=== PATIENT | male | born 1970 | race Caucasian/White ===

== ENCOUNTER 2018-11-28 11:25 | Inpatient (IN) | payer OTHER ==
[~2018-11-28] VITALS: Ht 172.7 cm; Wt 82.2 kg
[~2018-11-28 11:25] MED LIST: ATEN-60 PO; BECL80AE9 IN; CARI-277 PO; CHOL100040 PO; CITA-30 PO; GABA250S2 PO; HYDR-3682 PO; MORP30TA PO; NOR10T PO; ONDA-143 PO; PREDPOW63 PO; QUET100T38 PO; QUET50TA PO; [UNRECOGNIZED DRUG - OTHER]; nitro SL
[2018-11-28] MEDS ORDERED: IOHEXOL 300 MG/ML 100ML BOTTLE IJ ONE (11:41)
[2018-11-28] MEDS ORDERED: MORPHINE SULFATE 4 MG/ML SYR/VIAL IV ONE (11:45)
[2018-11-28] MEDS ORDERED: ONDANSETRON HCL 4 MG/2 ML VIAL IV ONE (11:45)
[2018-11-28 11:56] LABS: Basophils # (auto) 0.1 uL; Basophils % (auto) 1.3 % (0.0-2.0); Eosinophils # (auto) 0.2 uL; Eosinophils % (auto) 3.4 % (0.0-7.0); Hemoglobin 14.4 g/dL (13.5-17.5); Lymphocytes # (auto) 1.7 uL; Lymphocytes % (auto) 26.3 % (10.0-50.0); Mean Corpuscular Hemoglobin 30.8 pg (28.0-32.0); Mean Corpuscular Hgb Conc. 34.3 g/dL (32.0-36.0); Mean Corpuscular Volume 89.9 fL (80.0-100.0); Monocytes # (auto) 0.3 uL; Monocytes % (auto) 5.4 % (0.0-12.0); Neutrophils # (auto) 4.1 uL; Neutrophils % (auto) 63.6 % (37.0-80.0); Platelet Count (auto) 330 10^3/uL (140-450); Red Blood Cells 4.67 10^6/uL (4.5-5.90); Red Cell Distribution Width 14.1 % (11.8-14.3); White Blood Cell 6.4 10^3/uL (4.4-10.8)
[2018-11-28 12:15] LABS: Albumin 3.2 g/dL (3.4-5.0); Calcium 8.8 mg/dL (8.5-10.1); Potassium 3.8 mmol/L (3.5-5.1)
[2018-11-28 12:17] LABS: INR 0.98 (0.9-1.15); Partial Thromboplastin Time 26.6 sec (23.64-32.05)
[2018-11-28 12:18] LABS: BUN/Creatinine Ratio 15.3; Bilirubin, Total 0.4 mg/dL (0.2-1.0); Total Protein 6.5 g/dL (6.4-8.2)
[2018-11-28] MEDS ORDERED: SODIUM CHLORIDE 0.9% 1,000 ML IV SCH (16:05)
[2018-11-28] MEDS ORDERED: ACETAMINOPHEN 500 MG TAB PO PRN (16:15)
[2018-11-28] MEDS: FAMOTIDINE (10MG/ML) 2ML VL IV SCH (16:39)
[2018-11-28] MEDS: PROMETHAZINE HCL 25 MG/ML 1ML IV PRN ×2 (16:40→20:47)
[2018-11-28] MEDS: MORPHINE SULFATE 4 MG/ML SYR/VIAL IV PRN ×2 (16:40→20:47)
[2018-11-28] MEDS ORDERED: D5W/SOD CHL 0.45%/KCL 40MEQ 1,000 ML IV ONE (16:45)
--- NOTE | 2018-11-28 17:50 | NUR ---
CAME ON FROM ER, ALERT AND ORIENTED X4, NOT IN DISTRESS, CLEAR LS IN BILATERAL LS, RR=18 SAT=97%, DENIED CHEST PAIN OR SOB,HEART R=66, ABDOMEN SOFT WITH ACTIVE BS, LAST BM=11/28/18 REPORTED, KEEP NPO ORDERED, LT INGUINAL HERNIA AND SWOLLEN SCROTUMS NOTE, SKIN INTACT WARM TO TOUCH, RADIAL AND PEDAL PULSES PALPABLE, CAP REFILL <3 SECONDS, VS T=97.8 RR=18 SAT=97% P=66 SZ=425/83, RESTING FAMILY AT BED SIDE, HEAD OF BED ELEVATED, BED ON LOW POSITION, RAILS UP X2, CALL LIGHT ON REACH, PENDING OR FOR HERNIA REPAIR ORDERED, WILL CONTINUE MONITORING.
--- NOTE | 2018-11-28 19:27 | NUR ---
REPORT WAS GIVEN TO THE PESTICIDE USE MEDICAL COORDINATOR RN.
--- NOTE | 2018-11-28 20:00 | NUR ---
PAGED HOSPITALIST REGARDING DIET FOR PATIENT, PATIENT COMPLAINT NOT HAVING ANYTHING TO EAT FOR THE WHOLE DAY. AWAITING CALLBACK. CONTINUE PATIENT CARE.
--- NOTE | 2018-11-28 21:58 | NUR ---
REPAGED HOSPITALIST. AWAITING CALLBACK. PATIENT IS UPSET. EXPLAINED THE NEED FOR NOTHING BY MOUTH BUT INSISTED OF HAVING SOMETHING TO EAT BEFORE MIDNIGHT.
[2018-11-28 22:00] VITALS: BP 134/93
--- NOTE | 2018-11-28 22:10 | NUR ---
SPOKE WITH BARBARA MAGAÑA/ALEISHA REGARDING DIET FOR PATIENT, OKAY TO GIVE SANDWICH TONIGHT THEN RESUME NPO AFTER MIDNIGHT. CONTINUE PATIENT CARE.
[2018-11-29] MEDS: FAMOTIDINE (10MG/ML) 2ML VL IV SCH ×2 (04:03→16:53)
[2018-11-29 04:57] VITALS: BP 135/88
[2018-11-29] MEDS ORDERED: BUPIVACAINE W/ EPINEPH 0.25% INJ 50ML MDV ONE (07:36)
[2018-11-29 08:00] VITALS: BP 154/87
[2018-11-29] MEDS ORDERED: ceFAZolin 1GM/50ML 50 ML IV ONE (08:00)
--- NOTE | 2018-11-29 08:00 | NUR ---
RECEIVED PATIENT ALERT AND ORIENTED X4, NOT IN DISTRESS, CLEAR SOUNDS IN BILATERAL LUNG LOBES, RR=18 SAT=95%, DEEP BREATHING AND COUGHING ENCOURAGED, DEMONSTRATED AND TOLERATED WELL, DENIED SOB AND CHEST PAIN, HEART R=76, ABDOMEN SOFT AND ROUND WITH ACTIVE BS, LAST BM=11/27/18 REPORTED, SKIN INTACT WARM TO TOUCH, RADIAL AND PEDAL PULSES PALPABLE, CAP REFILL <3 SECONDS, ENCOURAGED TO AMBULATE AND VERBALIZED UNDERSTANDING, RESTING ON BED, HEAD OF BED ELEVATED, BED ON LOW POSITION, RAILS UP X2, CALL LIGHT ON REACH, CONSENT FORM ON CHART, CHECK LIST COMPLETED, VS T=97.6 RR=18 SAT=95% P=76 NZ=457/83, DENIED PAIN, WENT ON BED TO PRE OP, WILL CONTINUE FOLLOW UP.
[2018-11-29] MEDS ORDERED: NALOXONE HCL 0.4 MG/ML VIAL IV PRN (08:15)
[2018-11-29] MEDS ORDERED: HYDROmorphone HCL 2 MG/ML VL IV PRN (08:15)
[2018-11-29] MEDS ORDERED: ONDANSETRON HCL 4 MG/2 ML VIAL IV PRN (08:15)
[2018-11-29] MEDS ORDERED: LIDOCAINE 1% HCL (LOCAL ANESTH.) INJ 20ML MDV ONE (08:16)
[2018-11-29] MEDS ORDERED: MIDAZOLAM HCL 1MG/1ML-2 ML VIAL ONE (08:20)
[2018-11-29] MEDS ORDERED: METOCLOPRAMIDE HCL 5MG/ml INJ 2ml VIAL ONE (08:20)
[2018-11-29] MEDS ORDERED: PROPOFOL 10 MG/ML 20 ML IV ONE (08:23)
[2018-11-29] MEDS ORDERED: LIDOCAINE HCL 2% TOP JELLY 5ML TOP ONE (08:24)
[2018-11-29] MEDS ORDERED: fentaNYL CITRATE 100 MCG/2 ML VL ONE (08:31)
[2018-11-29] MEDS ORDERED: KETOROLAC TROMETH 30 MG/ML 1ML VIAL ONE (08:57)
[2018-11-29] MEDS ORDERED: DexAMETHasone SOD PHOS 10MG/1ML VIAL INJ ONE (08:58)
[2018-11-29] MEDS: HYDROmorphone HCL 2 MG/ML VL IV PRN ×3 (09:40→10:04)
[2018-11-29] MEDS ORDERED: hydrALAZINE HCL 20 MG/ML VL ONE (10:10)
[2018-11-29] MEDS ORDERED: hydrALAZINE HCL 20 MG/ML VL IV ONE (10:10)
--- NOTE | 2018-11-29 11:20 | NUR ---
BACK FROM OR, ALERT AND ORIENTED X4 NOT IN DISTRESS, PAIN L=5/10 REPORTED, LT INGUINAL SURGICAL SITE COVERED WITH DRY AND INTACT DRESSING, NO REDNESS OR ECCHYMOSIS NOTED, PEDAL PULSES PALPABLE, LEGS STRONG, VS T=97.9 RR=16 SAT=95% P=68 OM=765/89, RESTING ON BED, FAMILY AT BED SIDE, HEAD OF BED ELEVATED, BED ON LOW POSITION, RAILS UP, CALL LIGHT ON REACH, WILL CONTINUE MONITORING.
[2018-11-29] MEDS: MORPHINE SULFATE 4 MG/ML SYR/VIAL IV PRN ×2 (11:51→20:35)
[2018-11-29] MEDS: PROMETHAZINE HCL 25 MG/ML 1ML IV PRN ×2 (11:51→21:53)
[2018-11-29 12:00] VITALS: BP 147/97
--- NOTE | 2018-11-29 12:26 | NUR ---
C/O PAIN L=10/10, MORPHINE IVP WAS GIVEN ORDERED, 30 MINUTES LATER PAIN L=3-4/10 REPORTED, DEEP BREATHING AND COUGHING ENCOURAGED, DEMONSTRATED AND VERBALIZED UNDERSTANDING, WILL CONTINUE MONITORING.
[2018-11-29] MEDS: traMADol HCL 50 MG TAB PO PRN (16:54)
[2018-11-29 17:00] VITALS: BP 158/101
--- NOTE | 2018-11-29 20:00 | NUR ---
.Opening Shift Note Assumed care of patient, awake and alert. No S/S of distress/SOB or pain. Instructed on POC and to call for assist PRN, will continue to monitor for changes Q1hr and PRN. Patient up and ambulating in corridor.
[2018-11-29 22:00] VITALS: BP 148/98
[2018-11-29] MEDS ORDERED: TEMAZEPAM 15 MG CAP PO PRN (22:15)
[2018-11-30] MEDS: FAMOTIDINE (10MG/ML) 2ML VL IV SCH ×2 (04:46→17:07)
[2018-11-30 05:00] VITALS: BP 138/86
[2018-11-30 05:45] LABS: Basophils # (auto) 0 uL; Basophils % (auto) 0.2 % (0.0-2.0); Eosinophils # (auto) 0 uL; Eosinophils % (auto) 0.1 % (0.0-7.0); Hematocrit 39.2 % (41.0-53.0); Hemoglobin 13.3 g/dL (13.5-17.5); Lymphocytes # (auto) 1.5 uL; Lymphocytes % (auto) 9.7 % (10.0-50.0); Mean Corpuscular Hemoglobin 30.4 pg (28.0-32.0); Mean Corpuscular Hgb Conc. 33.9 g/dL (32.0-36.0); Mean Corpuscular Volume 89.4 fL (80.0-100.0); Monocytes # (auto) 1.1 uL; Platelet Count (auto) 354 10^3/uL (140-450); Red Blood Cells 4.39 10^6/uL (4.5-5.90); Red Cell Distribution Width 14.1 % (11.8-14.3); White Blood Cell 15.6 10^3/uL (4.4-10.8)
[2018-11-30 05:55] LABS: Potassium 3.8 mmol/L (3.5-5.1)
[2018-11-30 06:00] LABS: Albumin 3.2 g/dL (3.4-5.0); BUN/Creatinine Ratio 16.7; Calcium 8.9 mg/dL (8.5-10.1); Magnesium 2.4 mg/dL (1.6-2.6)
[2018-11-30 06:06] LABS: Bilirubin, Total 0.5 mg/dL (0.2-1.0); Total Protein 6.1 g/dL (6.4-8.2)
[2018-11-30] MEDS: MORPHINE SULFATE 4 MG/ML SYR/VIAL IV PRN ×4 (08:01→22:50)
[2018-11-30 08:35] VITALS: BP 151/87
--- NOTE | 2018-11-30 11:00 | NUR ---
DR. DHALIWAL AT BEDSIDE MADE AWARE OF INCISION SWELLING, NO REDNESS OR DRAINAGE NOTED. WILL CONTINUE TO MONITOR BUT STATES THAT IT IS NORMAL AND WILL TAKE SOME TIME TO GO BACK TO NORMAL.
[2018-11-30] MEDS: traMADol HCL 50 MG TAB PO PRN (11:08)
[2018-11-30 11:55] VITALS: BP 154/88
--- NOTE | 2018-11-30 12:03 | NUR ---
SPOKE WITH DR. DHALIWAL REGARDING PAIN MEDS AND DIET, PT. REQUESTING DIFFERENT PAIN MEDS HE IS GETTING NO RELIEF. WILL ENTER NEW ORDERS.
--- NOTE | 2018-11-30 16:30 | NUR ---
IV removal & reinsertion IV DC'd with clean sterile technique, catheter fully intact. Pressure dressing applied to site. Patient tolerated well. NOTE: [Left AC was leaking] IV insertion IV access obtained, via clean sterile technique by inserting 22 gauge catheter at left forearm after 3 attempt(s). IV secured properly. No trauma to site. Patient tolerated procedure well.
[2018-11-30 17:11] VITALS: BP 148/86
--- NOTE | 2018-11-30 20:00 | NUR ---
Opening Shift Note Assumed care of patient, awake and alert. No S/S of distress/SOB or pain. Instructed on POC and to call for assist PRN, will continue to monitor for changes Q1hr and PRN. Patient eating bedtime snack. Bed in low position, Call light in reach.
[2018-11-30] MEDS: HYDROcodone-ACET 10/325MG TAB PO PRN (20:10)
[2018-11-30 22:00] VITALS: BP 136/72
[2018-11-30] MEDS: PROMETHAZINE HCL 25 MG/ML 1ML IV PRN (22:51)
[2018-12-01] MEDS: MORPHINE SULFATE 4 MG/ML SYR/VIAL IV PRN ×3 (03:13→12:38)
[2018-12-01] MEDS: FAMOTIDINE (10MG/ML) 2ML VL IV SCH ×2 (04:27→15:56)
[2018-12-01 05:00] VITALS: BP 140/86
[2018-12-01] MEDS: HYDROcodone-ACET 10/325MG TAB PO PRN ×2 (05:54→14:15)
--- NOTE | 2018-12-01 07:00 | NUR ---
Patient down in bed; no acute distress noted. Report given to AM RAYMON
--- NOTE | 2018-12-01 07:40 | NUR ---
Opening Shift Note Assumed care of patient, awake and alert X4, sitting up in bed. No S/S of distress/SOB, lower abdominal pain of 8/10, will medicate per MD orders. Respirations are even and unlabored on RA. Updated on POC and instructed to call for assistance as needed, pt. verbalized understanding. Bed locked in lowest position, call light within reach, side rails up x2. Will continue to monitor for changes Q1hr and PRN.
[2018-12-01 09:15] VITALS: BP 130/84
[2018-12-01 13:16] VITALS: BP 132/83
[2018-12-01 13:52] VITALS: BP 132/83
--- NOTE | 2018-12-01 15:38 | NUR ---
Estimated needs based on CBW 82.2 kg for maintenance 9885-6120 kcal (22-24 kcal/kg) 66-82 g protein (0.8-1.0 g/kg) Addendum: 12/01/18 at [address] Amended: Links added.
--- NOTE | 2018-12-01 15:45 | NUR ---
Discharge instructions given as ordered. Encourage to follow up with PCP and Dr. Camacho as instructed. All questions and concerns addressed. Patient verbalized understanding. Medication reconciliation form completed and copy given to patient. Pain medication script given to patient. IV removed with catheter intact, pressure dressing applied. Patient taken to private vehicle via wheelchair with all personal belongings, accompanied by staff and family member. No distress noted at time of departure.
== END 2018-12-01 15:45 | disposition home or self-care (01) | DRG 228 ==
LOC: ER 11:25 → EDBD 11:25 → OVERFLOW 11:26 → WEST WING 17:28
PROVIDERS: ADMIT Internal Medicine; ATTEND Internal Medicine
PROC: 0YQ60ZZ Repair Left Inguinal Region, Open Approach (ICD-10-PCS; principal; 2018-11-29 08:14)
DX: K40.30 Unilateral inguinal hernia, with obstruction, without gangrene, not specified as recurrent (principal); D72.829 Elevated white blood cell count, unspecified; E78.5 Hyperlipidemia, unspecified; J44.9 Chronic obstructive pulmonary disease, unspecified; M43.10 Spondylolisthesis, site unspecified; M19.90 Unspecified osteoarthritis, unspecified site; I25.10 Atherosclerotic heart disease of native coronary artery without angina pectoris; F17.210 Nicotine dependence, cigarettes, uncomplicated; I10 Essential (primary) hypertension; Z82.49 Family history of ischemic heart disease and other diseases of the circulatory system; Z88.8 Allergy status to other drugs, medicaments and biological substances; Z71.6 Tobacco abuse counseling
CPT/HCPCS: 36415; 74177; 80053; 83735; 85025; 85610; 85730; 88302; 94761; 96374; 96375; G0378; J0690; J1100; J1885; J2001; J2250; J2405; J2704; J3490

== ENCOUNTER 2019-09-28 11:26 | Emergency (ER) | payer OTHER ==
[2019-09-28] MEDS ORDERED: IBUPROFEN 800 MG TAB PO ONE ×2 (12:30→12:45)
[2019-09-28] MEDS ORDERED: ACETAMINOPHEN/CODEINE#3 (300/30mg) TAB PO ONE (12:30)
[2019-09-28 12:47] VITALS: BP 132/86
== END 2019-09-28 15:09 | disposition home or self-care (01) ==
LOC: ER 11:26
DX: S42.002A Fracture of unspecified part of left clavicle, initial encounter for closed fracture (principal); S92.422A Displaced fracture of distal phalanx of left great toe, initial encounter for closed fracture; I25.10 Atherosclerotic heart disease of native coronary artery without angina pectoris; E78.5 Hyperlipidemia, unspecified; I10 Essential (primary) hypertension; V86.56XA Driver of dirt bike or motor/cross bike injured in nontraffic accident, initial encounter; Y93.55 Activity, bike riding; Y92.410 Unspecified street and highway as the place of occurrence of the external cause; Y99.8 Other external cause status
CPT/HCPCS: 29105; 73030; 73610; 73630; 99284; L3260

== ENCOUNTER 2020-11-19 19:02 | Emergency (ER) | payer OTHER ==
[~2020-11-19] VITALS: Ht 172.7 cm; Wt 72.6 kg
[~2020-11-19 19:02] MED LIST changes: -CITA-30 PO; +CITA20TA9 PO
[2020-11-19 19:25] VITALS: BP 135/89
== END 2020-11-19 19:38 | disposition left against medical advice (07) ==
LOC: ER 19:02 → EDBD 19:02 → ER 19:38
DX: R07.89 Other chest pain (principal); R19.7 Diarrhea, unspecified; M54.9 Dorsalgia, unspecified; Z53.21 Procedure and treatment not carried out due to patient leaving prior to being seen by health care provider
CPT/HCPCS: 93005

== ENCOUNTER 2020-11-23 15:48 | Emergency (ER) | payer OTHER ==
[~2020-11-23] VITALS: Ht 172.7 cm; Wt 63.5 kg
[2020-11-23 16:12] VITALS: BP 145/88
[2020-11-23 16:42] LABS: Basophils # (auto) 0.1 10 ^3/uL (0-0.2); Basophils % (auto) 0.8 % (0.0-2.0); Eosinophils # (auto) 0.3 10 ^3/uL (0-0.8); Eosinophils % (auto) 4.1 % (0.0-7.0); Hematocrit 46.1 % (41.0-53.0); Hemoglobin 16.1 g/dL (13.5-17.5); Lymphocytes # (auto) 2.5 10 ^3/uL (0.4-5.4); Mean Corpuscular Hemoglobin 30.7 pg (28.0-32.0); Mean Corpuscular Hgb Conc. 34.9 g/dL (32.0-36.0); Monocytes # (auto) 0.5 10 ^3/uL (0-1.3); Neutrophils # (auto) 4.6 10 ^3/uL (1.6-8.6); Neutrophils % (auto) 58.1 % (37.0-80.0); Nucleated Red Blood Cells % 0.1 %; Red Blood Cells 5.24 10^6/uL (4.5-5.90); Red Cell Distribution Width 14.5 % (11.8-14.3)
[2020-11-23 16:45] LABS: Acetaminophen < 2.0 ug/mL (10-30); Salicylate 5.6 mg/dL (2.8-20.0)
[2020-11-23 16:48] LABS: Albumin 3.6 g/dL (3.4-5.0); Potassium 3.8 mmol/L (3.5-5.1)
[2020-11-23 16:52] LABS: BUN/Creatinine Ratio 20.2; Bilirubin, Total 0.5 mg/dL (0.2-1.0); Total Protein 6.9 g/dL (6.4-8.2)
[2020-11-23 18:22] LABS: Amphetamine Screen, Urine NEGATIVE (NEGATIVE); Barbiturate Scree,Urine NEGATIVE (NEGATIVE); Benzodiazephine Screen, Urine NEGATIVE (NEGATIVE); Cannabinoid Screen, Urine POSITIVE (NEGATIVE); Cocaine Screen, Urine NEGATIVE (NEGATIVE); Opiate Scree,Urine NEGATIVE (NEGATIVE); Phencyclidine Screen, Urine NEGATIVE (NEGATIVE)
== END 2020-11-23 19:02 | disposition left against medical advice (07) ==
LOC: EDBD 15:48 → ER 15:48
DX: R45.851 Suicidal ideations (principal); I10 Essential (primary) hypertension; E11.9 Type 2 diabetes mellitus without complications; F17.210 Nicotine dependence, cigarettes, uncomplicated; F32.9 Major depressive disorder, single episode, unspecified; F41.9 Anxiety disorder, unspecified; J44.9 Chronic obstructive pulmonary disease, unspecified
CPT/HCPCS: 36415; 80053; 80178; 80307; 80320; 80329; 85025

== ENCOUNTER 2022-03-16 16:17 | Emergency (ER) | payer OTHER ==
[~2022-03-16] VITALS: Ht 170.2 cm; Wt 88.6 kg
[2022-03-16 18:34] VITALS: BP 129/87
[2022-03-16] MEDS ORDERED: HYDROcodone-ACET 5/325MG TAB PO ONE (19:15)
[2022-03-16] MEDS ORDERED: ONDANSETRON ODT 4 MG TAB PO ONE (19:15)
== END 2022-03-16 19:50 | disposition home or self-care (01) ==
LOC: ER 16:18
DX: M79.601 Pain in right arm (principal); I10 Essential (primary) hypertension; J44.9 Chronic obstructive pulmonary disease, unspecified; F17.210 Nicotine dependence, cigarettes, uncomplicated; Z79.899 Other long term (current) drug therapy; Z88.8 Allergy status to other drugs, medicaments and biological substances
CPT/HCPCS: 93005; 99283; Q0162